=== PATIENT | male | born 1945 | race Caucasian/White ===

== ENCOUNTER → 2022-06-10 | Outpatient (CLI) | payer OTHER ==
[~2022-06-10] MED LIST: ASPI-1197 PO; ATOR20TA65 PO; GUAI400T94 PO; LEVO50TA11 PO; MULT-729 PO; VERA180T61 PO
== END | disposition home or self-care (01) ==
LOC: RAH 07:21
PROVIDERS: ATTEND Internal Medicine Gastroenterology
DX: K80.20 Calculus of gallbladder without cholecystitis without obstruction (principal); R10.9 Unspecified abdominal pain; K76.89 Other specified diseases of liver
CPT/HCPCS: 76700

== ENCOUNTER 2022-10-02 23:50 | Emergency (ER) | payer OTHER ==
[~2022-10-02] VITALS: Ht 170.2 cm; Wt 76.7 kg
[2022-10-03] MEDS ORDERED: ZOSYN 3.375GM +NS 50ML IVPB ONE (01:00)
[2022-10-03] MEDS ORDERED: BACITRACIN 1 EACH PACKET TP ONE (04:00)
[2022-10-03] MEDS ORDERED: CEPH500B PO (04:25)
[2022-10-03 04:29] VITALS: BP 139/65
== END 2022-10-03 04:34 | disposition home or self-care (01) ==
LOC: EDH 23:50
DX: S62.632A Displaced fracture of distal phalanx of right middle finger, initial encounter for closed fracture (principal); S61.312A Laceration without foreign body of right middle finger with damage to nail, initial encounter; X58.XXXA Exposure to other specified factors, initial encounter; Y93.89 Activity, other specified; Y92.89 Other specified places as the place of occurrence of the external cause; Y99.8 Other external cause status; Z79.82 Long term (current) use of aspirin; Z79.899 Other long term (current) drug therapy
CPT/HCPCS: 99284; 82948; 96365; 96366; 73130; 29130; J2543

== ENCOUNTER → 2024-01-17 | Outpatient (CLI) | payer OTHER ==
[~2024-01-17] MED LIST changes: +CEPH500B PO
== END | disposition home or self-care (01) ==
LOC: RAH 07:47
PROVIDERS: ATTEND Internal Medicine Cardiovascular Disease
DX: Z13.6 Encounter for screening for cardiovascular disorders (principal)
CPT/HCPCS: 75571